=== PATIENT | male | born 1955 | race Caucasian/White ===

== ENCOUNTER 2017-04-14 09:04 | Inpatient (IN) | payer OTHER ==
[2017-04-14] VITALS (25 sets, daily range): BP systolic 16–132; BP diastolic 51–158; PULSE 56–62; RESP 10–20; Ht 177.8 cm; Wt 80.4 kg
[~2017-04-14] VITALS: Ht 177.8 cm; Wt 80.4 kg
[~2017-04-14 09:04] MED LIST: CEFAZOLIN 1 GM INJ ONE
[2017-04-14] MEDS ORDERED: ATEN-51 PO (09:41)
[2017-04-14] MEDS ORDERED: ESCI20TA38 PO (09:41)
[2017-04-14] MEDS ORDERED: MELO7.5O PO (09:41)
[2017-04-14] MEDS ORDERED: BUPR300T36 PO (09:41)
[2017-04-14] MEDS ORDERED: HYDR-902 PO (09:41)
[2017-04-14] MEDS ORDERED: AMLO-147 PO (09:41)
[2017-04-14] MEDS ORDERED: SIMV40TA2 PO (09:41)
[2017-04-14] MEDS ORDERED: FOLI-49 PO (09:41)
[2017-04-14] MEDS ORDERED: OMEP40CA6 PO (09:41)
[2017-04-14] MEDS ORDERED: LISI-522 PO (09:45)
[2017-04-14] MEDS: D5W-0.45 NACL + KCL 20 MEQ 1,000 ML IV SCH ×2 (11:55→21:55)
--- NOTE | 2017-04-14 11:55 | HPN ---
Date/Time of Note Date/Time of Note DATE: 04/14/17 TIME: 11:55 Interval H&P Admission Note Pt. seen H&P reviewed: No system changes LETHA ROSA PA-C Apr 14, 2017 11:55
[2017-04-14] MEDS ORDERED: ONDANSETRON 4 MG INJ IV PRN ×2 (12:00→15:00)
[2017-04-14] MEDS ORDERED: CEPASTAT LOZENGE MT PRN (12:00)
[2017-04-14] MEDS ORDERED: ZOLPIDEM 5 MG TAB PO PRN (12:00)
[2017-04-14] MEDS ORDERED: NALOXONE (0.4 MG/ML) INJ IV PRN (12:00)
[2017-04-14] MEDS ORDERED: CYCLOBENZAPRINE 10 MG TAB PO PRN (12:00)
[2017-04-14] MEDS ORDERED: HYDROmorphONE 1 MG/ML SYG IV PRN (12:00)
[2017-04-14] MEDS ORDERED: DIPHENHYDRAMINE 50 MG INJ IV PRN ×2 (12:00→15:00)
[2017-04-14] MEDS ORDERED: BISACODYL 10 MG SUPP PR PRN (12:00)
[2017-04-14] MEDS ORDERED: AL HYDROX/MG HYDROX/SIMETH 30 ML CUP PO PRN (12:00)
[2017-04-14] MEDS ORDERED: ACETAMINOPHEN 325 MG TAB PO PRN (12:00)
[2017-04-14] MEDS ORDERED: ROCURONIUM 50 MG INJ ONE ×3 (12:03→15:11)
[2017-04-14] MEDS ORDERED: PROPOFOL 100 ML ONE ×2 (12:03→15:11)
[2017-04-14] MEDS ORDERED: FENTAnyl 50 MCG/ML VIAL ONE (12:05)
[2017-04-14] MEDS ORDERED: SURGIFOAM POWDER 1 GM KIT ONE (13:03)
[2017-04-14] MEDS ORDERED: GELATIN SIZE 100 SPONGE ONE ×2 (13:03→14:04)
[2017-04-14] MEDS ORDERED: POLYMYXIN/BACITRACIN 1L IRRIG ONE (13:04)
[2017-04-14] MEDS ORDERED: THROMBIN 5000 UNIT VIAL ONE ×2 (13:04→14:05)
[2017-04-14] MEDS ORDERED: morphine 10 MG INJ ONE (13:07)
[2017-04-14] MEDS ORDERED: SODIUM CL BACTERIOSTATIC 30 ML INJ ONE (13:20)
[2017-04-14] MEDS ORDERED: hydrALAzine 20 MG INJ IV PRN (15:00)
[2017-04-14] MEDS ORDERED: LABETALOL HCL 20MG INJ IV PRN (15:00)
[2017-04-14] MEDS ORDERED: HYDROmorphONE (0.2 MG/ML) 10ML SYG IV PRN ×3 (15:00)
[2017-04-14] MEDS ORDERED: OXYCODONE/ACETAMINOPHEN (5/325) TAB PO PRN ×2 (15:00)
[2017-04-14] MEDS ORDERED: EPHEDrine SULFATE 50 MG/5 ML SYG IV PRN (15:00)
[2017-04-14] MEDS ORDERED: FENTAnyl 50 MCG/ML VIAL IV PRN ×3 (15:00)
[2017-04-14] MEDS ORDERED: MEPERIDINE 25 MG INJ IV PRN (15:00)
[2017-04-14] MEDS ORDERED: DEXAMETHASONE 4 MG/ML 1 ML INJ ONE (15:11)
[2017-04-14] MEDS ORDERED: LIDOCAINE 2% (SDV) 5 ML INJ ONE (15:11)
[2017-04-14] MEDS ORDERED: ONDANSETRON 4 MG INJ ONE (15:12)
--- NOTE | 2017-04-14 15:47 | OPPN ---
Date/Time of Note Date/Time of Note DATE: 04/14/17 TIME: 15:45 Operative Report Free Text/Dictation s/p ACDF C4-6 Preoperative Diagnosis C4-6 DDD and stenosis, radiculopathy Postoperative Diagnosis C4-6 DDD and stenosis, radiculopathy Operation/Procedure Performed ACDF C4-6 Provider: JEN LITTLEJOHN MD litigation assistant: LETHA ROSA PA-C Anesthesia: general Estimated blood loss: 50 - 100 ml's Specimens C4-5 and C5-6 disc Grafts/Implants neurostructures cage Complications: None LETHA ROSA PA-C Apr 14, 2017 15:47
[2017-04-14] MEDS: HYDROmorphONE 0.2 MG/ML PCA IV SCH (16:55)
--- NOTE | 2017-04-14 17:05 | RADRPT ---
PROCEDURE: Intraoperative imaging of the cervical spine with fluoroscopy. CLINICAL INDICATION: Neck pain. Intraoperative. TECHNIQUE: 11 images of the cervical spine were obtained in the operating room with an image inten sifier. No radiologist was in attendance. Fluoroscopy time is 21.5 seconds. COMPARISON: No prior study is available for comparison. FINDINGS: Surgical instruments are noted overlying the cervical spine. Final images demonstrate anterior fusion with plate and screws at C4, C5, C6. Intervertebral disk s pacers are present at C4-5 and C5-6. IMPRESSION: 1. Intraoperative imaging of the cervical spine. RPTAT: QQ .Aroldo Urias MD, MD Date Time Electronically viewed and signed by .Aroldo Urias MD, on 04/14/2017 17:04 .R/
[2017-04-14] MEDS: CEFAZOLIN 1 GM/50 ML (PMX) 50 ML IVPB SCH ×2 (18:04→20:38)
[2017-04-14] MEDS: DOCUSATE SODIUM 100 MG CAP PO SCH (20:36)
[2017-04-14] MEDS: ESCITALOPRAM 10 MG TAB PO SCH (20:36)
[2017-04-14] MEDS: ATENOLOL 25 MG TAB PO SCH (20:37)
[2017-04-14] MEDS ORDERED: ATORVASTATIN 20 MG TAB PO SCH (21:00)
[2017-04-15] VITALS: BP 137/65; PULSE 56; RESP 18
[2017-04-15 04:00] VITALS: BP 119/56; PULSE 58; RESP 18
[2017-04-15] MEDS: CEFAZOLIN 1 GM/50 ML (PMX) 50 ML IVPB SCH (04:21)
--- NOTE | 2017-04-15 04:22 | OPR ---
DATE OF OPERATION: 04/14/2017 PREOPERATIVE DIAGNOSIS: C4-5, C5-6 cervical disc disease and stenosis with radiculopathy. POSTOPERATIVE DIAGNOSIS: C4-5, C5-6 cervical disc disease and stenosis with radiculopathy. OPERATIVE PROCEDURE: 1. Anterior cervical diskectomy, spinal cord decompression at C4-5, C5-6. 2. Anterior cervical fusion at C4-5, C5-6. 3. Placement of intervertebral biomechanical device at C4-5 and C5-6. 4. Anterior hardware placement at C4, C5, C6. 5. Use of allograft. 6. Use of operative microscope. 7. Use of C-arm flash with interpretation without radiologist present. 8. Intraoperative neuromonitoring (2.5 hours). IMPLANTS: 1. Neuro structure, Cavetto, 4 mm x 16 mm x 18 mm PEEK cage at C4-5 and C5-6. 2. Neuro structure, Transom cervical plate, 32 mm, with 14 mm screws. 3. Fibergraft. SURGEON: Vipin Trevino MD HOT DIP PLATER: Steph Hutton PA-C. NEED FOR INSTRUMENT AND CONTROL SERVICE PERSON: An bilingual legal assistant was required to retract the NV elements. OPERATIVE FINDINGS AT SURGERY: Neuromonitoring inside the case revealed bilateral C5 and C6 amplitude down to 40 percent. At the end of the case, nerve signal returned to normal. The patient had stenosis at C4-5 and C5-6, with collapse at C5-6 and instability at C4-5. Bilateral foraminal herniations were seen at C5-6. ESTIMATED BLOOD LOSS: 60 cc. DRAINS: None. SPECIMENS: Disc. COMPLICATIONS: During procedure none. ANESTHESIOLOGIST: Dr. Gamez. ANESTHESIA: General. INDICATION FOR PROCEDURE: This is a 61-year-old gentleman with neck pain with left cervical radiculopathy in setting of stenosis. He failed nonoperative measures, and therefore recommended he undergo the above procedure. Preoperatively, discussed risks, benefits, alternatives. He understood and wished to proceed. DESCRIPTION OF PROCEDURE IN DETAIL: The patient was identified in the preop holding area, given Ancef antibiotics in the operating room, where he was successfully placed under general anesthesia. Neuromonitoring leads were placed. Sequential compression devices were applied. Goff catheter was introduced. Neuromonitoring was utilized during the procedure for 2.5 hours to include SSEP, MEP, and EMG. This was performed by [employer]. Start time was 1 p.m. Closure time was 3:30 p.m. The patient was placed on the operating room table in the supine position. Towel rolls were placed behind the neck and between the scapular blades. The arms were tucked to the side. Neck was extended. Neck was then prepped and draped in usual sterile fashion. A left-sided neck incision was made anteriorly. Skin was incised. The platysma was incised in line with skin incision. I then identified the interval between the sternocleidomastoid and strap muscles. I identified the anterior spine. Bent spinal needle was placed into the C5-6 level and a lateral film obtained confirmed the correct level. Once this was confirmed, I subperiosteally dissected the longus coli musculature. Self- retaining retractors were placed. Anesthesiologist deflated and re-inflated the cuff. Next, I performed radical diskectomies at C4-5 and C5-6 using curette, Kerrison punches, and pituitary rongeurs and a high-speed bur. I then decompressed the posterior canal and decompressed the spinal cord and the neural foramina bilaterally. Once the decompression was completed, I placed various trials and chose the appropriate graphite. I then took a PEEK cage, within which I placed allograft, and I impacted the intervertebral biomechanical device into the C4-5 level and the C5-6 level to complete the anterior cervical fusion at both levels. I then placed an anterior cervical plate with 14-mm screws into the C4, C5 and C6 vertebral bodies. I locked each of the screws. I then took final AP and lateral images. I was happy with placement of the hardware in line of the spine. The wound was then copiously irrigated. Of note, decompression was performed under microscopic visualization. After the wound was irrigated, retractors were removed. I then closed the platysma with a 2-0 Vicryl stitch. I then closed subcutaneous tissue with 3-0 Vicryl stitch. Dermabond was then applied. The patient was then awakened from anesthesia and taken to recovery room in stable condition. Lap, sponge, and instrument counts were correct x 2. There were no apparent complications during the procedure. The patient will be admitted to the [facility] for routine postoperative care, to include pain control, antibiotics, and physical therapy. Dictated By: Vipin Trevino MD /chacorta/joe /Document#: [id number] EDSON
[2017-04-15 05:16] LABS: BASOPHILS % 0.1 % (0.0-2.0); HEMOGLOBIN 13.6 g/dl (14.0-18.0); LYMPHOCYTES # 0.8 10^3/ul (0.8-2.9); LYMPHOCYTES % 5.3 % (15.0-51.0); MEAN CORPUSCULAR HEMOGLOBIN 31.3 pg (29.0-33.0); MEAN CORPUSCULAR VOLUME 92.2 fl (82.0-101.0); MEAN PLATELET VOLUME 11.8 fl (7.4-10.4); MONOCYTE # 0.5 10^3/ul (0.3-0.9); MONOCYTES % 3.1 % (0.0-11.0); NEUTROPHIL # 13.1 10^3/ul (1.6-7.5); PLATELET COUNT 184 10^3/UL (140-415); RED BLOOD COUNT 4.34 10^6/ul (4.70-6.10); WHITE BLOOD COUNT 14.4 10^3/ul (4.8-10.8)
[2017-04-15 05:48] LABS: CALCIUM 9.1 mg/dl (8.4-10.2); CREATININE 0.74 mg/dl (0.61-1.24); MAGNESIUM 1.9 mg/dl (1.7-2.5)
[2017-04-15] MEDS: HYDROmorphONE 0.2 MG/ML PCA IV SCH (07:04)
[2017-04-15] MEDS: D5W-0.45 NACL + KCL 20 MEQ 1,000 ML IV SCH (07:18)
[2017-04-15 07:42] VITALS: BP 133/63; RESP 19
--- NOTE | 2017-04-15 08:13 | PN ---
Date/Time of Note Date/Time of Note DATE: 04/15/17 TIME: 08:10 Assessment/Plan VTE Prophylaxis VTE Prophylaxis Intervention: SCD's, other Lines/Catheters IV Catheter Type (from Nrsg): Peripheral IV Urinary Cath still in place: Yes Reason Cath still needed: urinary retention Assessment/Plan Assessment/Plan 1. Stable post op cx laminectomy. 2. Hx HBP, controlled 3. Hx elev chol, statin continued 4. Elev WBC, not sure if received steroids perioperatively ? 5. Home only if ok with ortho and pt 6/. Boyle to be removed. Subjective 24 Hr Interval Summary Respiratory: No cough, No shortness of breath Cardiovascular: No chest pain Gastrointestinal: no complaints Genitourinary: other (boyle in place) Musculoskeletal: neck pain (mild without diff swallowing and no radicular neck pain) Exam/Review of Systems Vital Signs Vitals Vital Signs Date Time Temp Pulse Resp B/P Pulse Ox O2 Delivery O2 Flow Rate FiO2 04/15/17 07:42 97.7 56 19 133/63 96 04/15/17 04:00 Nasal Cannula 2.0 Intake and Output 04/14/17 04/14/17 04/15/17 15:00 23:00 07:00 Intake Total 1900 ml 850 ml Output Total 300 ml 1000 ml Balance 1600 ml -150 ml Exam Neck: No jvd Respiratory: clear to auscultation Cardiovascular: regular rate and rhythm Gastrointestinal: soft Extremities: No edema (and no calf tend) Results Result Diagram: 04/15/17 0437 04/15/17 0437 Results 24 hrs Laboratory Tests Test 04/15/17 04:37 White Blood Count 14.4 H Red Blood Count 4.34 L Hemoglobin 13.6 L Hematocrit 40.0 L Mean Corpuscular Volume 92.2 Mean Corpuscular Hemoglobin 31.3 Mean Corpuscular Hemoglobin Concent 34.0 Red Cell Distribution Width 13.0 Platelet Count 184 Mean Platelet Volume 11.8 H Neutrophils % 91.0 H Lymphocytes % 5.3 L Monocytes % 3.1 Eosinophils % 0.0 Basophils % 0.1 Nucleated Red Blood Cells % 0.0 Neutrophils # 13.1 H Lymphocytes # 0.8 Monocytes # 0.5 Eosinophils # 0.0 Basophils # 0.0 Nucleated Red Blood Cells # 0.0 Sodium Level 143 Potassium Level 4.0 Chloride Level 99 Carbon Dioxide Level 30 Anion Gap 18 H Blood Urea Nitrogen 11 Creatinine 0.74 Glucose Level 147 Calcium Level 9.1 Magnesium Level 1.9 Medications Medications Current Medications Potassium Chloride/Dextrose/ Sod Cl (D5-1/2ns + KCl 20 Meq) 1,000 ml @ 100 mls/ hr Q10H IV ; Start 04/14/17 at 11:55 Acetaminophen/ Hydrocodone Bitart ([place] (10/325)) 1 tab Q4H PRN PO PAIN LEVEL 1-5; Start 04/15/17 at 10:00 Acetaminophen/ Hydrocodone Bitart ([place] (10/325)) 2 tab Q4H PRN PO PAIN LEVEL 6-10; Start 04/15/17 at 10:00 Hydromorphone HCl (Dilaudid) 0.2 mg Q1H PRN IV BREAKTHROUGH PAIN; Start at 12:00 Ondansetron HCl (Zofran Inj) 4 mg Q6H PRN IV NAUSEA AND/OR VOMITING; Start at 12:00 Bisacodyl (Dulcolax Supp) 10 mg DAILY PRN RI CONSTIPATION; Start 04/14/17 at 12 :00 Docusate Sodium (Colace) 100 mg BID PO Last administered on 04/14/17t 20:36; Admin Dose 100 MG; Start 04/14/17 at 21:00 Al Hydrox/Mg Hydrox/Simethicone (Mag-Al Plus) 15 ml Q6H PRN PO CONSTIPATION/ DYSPEPSIA; Start 04/14/17 at 12:00 Acetaminophen (Tylenol Tab) 650 mg Q4H PRN PO ACUNA OR TEMP GREATER THAN 101.3F; Start 04/14/17 at 12:00 Cyclobenzaprine HCl (Flexeril) 10 mg TID PRN PO MUSCLE SPASMS; Start 04/14/17 at 12:00 Phenol (Cepastat Lozenge) 1 lozenge PRN PRN MT SORE THROAT; Start 04/14/17 at 12:00 Diphenhydramine HCl (Benadryl) 25 mg Q6H PRN IV ITCHING; Start 04/14/17 at 12: 00 Naloxone HCl (Narcan) 0.2 mg Q2M PRN IV RR 8 BREATHS/MIN OR LESS; Start at 12:00 Hydromorphone HCl (Dilaudid SAND CASTER APPRENTICE) SAND CASTER APPRENTICE to be started in PACU Q4PCA IV Last administered on 04/15/17 07:04; Admin Dose 6 MG; Start 04/14/17 at 12:00; Stop 04/15/17 at 10:00 Miscellaneous Information 1. Hold SAND CASTER APPRENTICE at 1,000... SAND CASTER APPRENTICE IV ; Start 04/14/17 at 12: 00 Amlodipine Besylate (Norvasc) 10 mg DAILY PO ; Start 04/15/17 at 09:00 Atenolol (Tenormin) 25 mg BID PO Last administered on 04/14/17 20:37; Admin Dose 25 MG; Start 04/14/17 at 21:00 Bupropion HCl (Wellbutrin Xl) 300 mg DAILY PO ; Start 04/15/17 at 09:00 Escitalopram Oxalate (Lexapro) 20 mg DAILY PO Last administered on 04/14/17 20 :36; Admin Dose 20 MG; Start 04/14/17 at 19:30 Folic Acid (Folic Acid) 1 mg DAILY PO ; Start 04/15/17 at 09:00 Lisinopril (Zestril) 20 mg DAILY PO ; Start 04/15/17 at 09:00 Atorvastatin Calcium (Lipitor) 20 mg QHS PO Last administered on 04/14/17 20: 36; Admin Dose 20 MG; Start 04/14/17 at 21:00 Hydrochlorothiazide (Hydrochlorothiazide) 25 mg DAILY PO ; Start 04/15/17 at 09: 00 SILVESTRE PANDA MD Apr 15, 2017 08:13
--- NOTE | 2017-04-15 08:19 | CONS ---
DATE OF ADMISSION: 04/14/2017 DATE OF CONSULTATION: 04/14/2017 Thank you, Dr Trevino, for asking me to participate in the medical management of this patient. REASON FOR CONSULTATION: Manage the patient's hypertension, gastroesophageal reflux disease, hyperlipidemia, and generalized anxiety disorder. HISTORY OF PRESENT ILLNESS: This 61-year-old man was having increasing neck pain that was radiating down his spine into his trapezius muscle. The patient had failed medical therapy and decided to undergo a cervical spine surgery. Surgery was done today by Dr Trevino. The patient is now postop surgery. The patient is awake and alert. He answers questions appropriately. The patient denies any chest pain or shortness of breath. The patient did take his antihypertensive medication this morning. PAST MEDICAL HISTORY: Remarkable for hypertension, hyperlipidemia, gastroesophageal reflux disease, generalized anxiety disorder. PAST SURGICAL HISTORY: Knee arthroscopy, shoulder arthroscopy on the right, thyroglossal cyst removal on the right, tonsillectomy, total knee arthroplasty on the right. ALLERGIES: OYSTERS. SOCIAL HISTORY: He does not smoke. CURRENT MEDICATIONS: 1. Amlodipine 10 mg a day. 2. Atenolol 25 mg twice a day. 3. Bupropion XL 300 mg a day. 4. Lexapro 20 mg a day. 5. Folic acid 1 mg a day. 6. [place] 10/325 q.4 hours p.r.n. pain. 7. Lisinopril/hydrochlorothiazide 20/25 daily. PHYSICAL EXAMINATION: A well-develop man in no acute distress. VITAL SIGNS: Temperature 98.1, pulse of 58, respirations 20, blood pressure 125/55. O2 saturation is 98 percent on 2 L nasal cannula. HEENT: Head normocephalic. Eyes, extraocular muscles intact. Nose and mouth are normal. NECK: He has a rigid cervical collar on. LUNGS: Clear to auscultation. HEART: Regular rhythm. No murmurs, gallops, or rubs. ABDOMEN: Soft, nontender. EXTREMITIES: No peripheral edema. NEUROLOGIC: Grossly intact. IMPRESSION: This patient is now postop a cervical spine surgery which included a cervical discectomy and cervical fusion. He is feeling well. He denies any nausea, shortness of breath, chest pain. I will manage the patient's hypertension, hyperlipidemia, gastroesophageal reflux disease, and generalized anxiety disorder. PLAN: 1. Resume some routine medications. 2. Check labs in the morning. 3. Postop cervical spine surgery protocol. 4. I will follow the patient along with you. Dictated By: Venkatesh Mercado MD /chacorta/kenji /Document#: [id number]
[2017-04-15] MEDS: ATENOLOL 25 MG TAB PO SCH (08:29)
[2017-04-15] MEDS: DOCUSATE SODIUM 100 MG CAP PO SCH (08:29)
[2017-04-15] MEDS: ESCITALOPRAM 10 MG TAB PO SCH (08:30)
[2017-04-15] MEDS ORDERED: HYDROCHLOROTHIAZIDE 25 MG TAB PO SCH (09:00)
[2017-04-15] MEDS ORDERED: LISINOPRIL 20 MG TAB PO SCH (09:00)
[2017-04-15] MEDS ORDERED: AMLODIPINE 10 MG TAB PO SCH (09:00)
[2017-04-15] MEDS ORDERED: FOLIC ACID 1 MG TAB PO SCH (09:00)
[2017-04-15] MEDS ORDERED: BUPROPION (XL) 150 MG TAB PO SCH (09:00)
--- NOTE | 2017-04-15 09:29 | DS ---
Date/Time of Note Date/Time of Note DATE: 04/15/17 TIME: 09:28 Discharge Summary Admission/Discharge Info Admit Date/Time Apr 14, 2017 at 09:04 Discharge Date/Time 04/15 Discharge Diagnosis cervical fusion Patient Condition: Good Hospital Course patient underwent C4-6 ACDF. post-op course uncomplicated. By POD #1 he was deemed stable for d/c with f/u arranged with the undersigned. Home Meds Reported Medications Lisinopril/Hydrochlorothiazide (Zestoretic 20-25 mg Tablet) 1 Each Tablet, 1 TAB PO DAILY, TAB 04/14/17 Hydrocodone/Acetaminophen ([place] 10-325 Tablet) 1 Each Tablet, 1 TAB PO Q4H PRN , TAB 04/14/17 Simvastatin* (Zocor*) 40 Mg Tablet, 40 MG PO QHS, #30 TAB 04/14/17 Escitalopram Oxalate* (Escitalopram Oxalate*) 20 Mg Tablet, 20 MG PO DAILY, #30 TAB 04/14/17 Bupropion Hcl* (Bupropion XL*) 300 Mg Tab.sr.24h, 300 MG PO DAILY, TAB.SA 04/14/17 Meloxicam* (Meloxicam*) 7.5 Mg/5 Ml Oral.susp, 15 MG PO DAILY, #300 ML 04/14/17 Omeprazole* (Omeprazole*) 40 Mg Capsule.dr, 40 MG PO DAILY, #30 CAP 04/14/17 Amlodipine Besylate* (Amlodipine Besylate*) 10 Mg Tablet, 10 MG PO DAILY, #30 TAB 04/14/17 Folic Acid* (Folic Acid*) 1 Mg Tablet, 1 MG PO DAILY, TAB 04/14/17 Atenolol* (Atenolol*) 25 Mg Tablet, 25 MG PO BID, #60 TAB 04/14/17 Primary Care Provider Not On Staff Doctor Pending Labs Laboratory Tests Test 04/15/17 04:37 White Blood Count 14.410^3/ul (4.8-10.8) Red Blood Count 4.3410^6/ul (4.70-6.10) Hemoglobin 13.6g/dl (14.0-18.0) Hematocrit 40.0% (42.0-52.0) Mean Corpuscular Volume 92.2fl (82.0-101.0) Mean Corpuscular Hemoglobin 31.3pg (29.0-33.0) Mean Corpuscular Hemoglobin Concent 34.0g/dl (32.0-37.0) Red Cell Distribution Width 13.0% (11.5-14.5) Platelet Count 85027^3/UL (140-415) Mean Platelet Volume 11.8fl (7.4-10.4) Neutrophils % 91.0% (39.0-77.0) Lymphocytes % 5.3% (15.0-51.0) Monocytes % 3.1% (0.0-11.0) Eosinophils % 0.0% (0.0-7.0) Basophils % 0.1% (0.0-2.0) Nucleated Red Blood Cells % 0.0/100WBC (0.0-0.0) Neutrophils # 13.110^3/ul (1.6-7.5) Lymphocytes # 0.810^3/ul (0.8-2.9) Monocytes # 0.510^3/ul (0.3-0.9) Eosinophils # 0.010^3/ul (0.0-0.5) Basophils # 0.010^3/ul (0.0-0.1) Nucleated Red Blood Cells # 0.010^3/ul (0.0-0.0) Sodium Level 143mmol/L (135-144) Potassium Level 4.0mmol/L (3.5-5.1) Chloride Level 99mmol/L (97-110) Carbon Dioxide Level 30mmol/L (21-31) Anion Gap 18 (8-16) Blood Urea Nitrogen 11mg/dl (7-20) Creatinine 0.74mg/dl (0.61-1.24) Glucose Level 147mg/dl (70-220) Calcium Level 9.1mg/dl (8.4-10.2) Magnesium Level 1.9mg/dl (1.7-2.5) JEN LITTLEJOHN MD Apr 15, 2017 09:29
[2017-04-15] MEDS ORDERED: HYDROCODONE/APAP (10/325) TAB PO PRN ×2 (10:00)
[2017-04-15 17:34] LABS: ADD UMIC NO; UR ASCORBIC ACID NEGATIVE (NEGATIVE); UR BILIRUBIN (Dip) NEGATIVE (NEGATIVE); UR BLOOD (Dip) NEGATIVE (NEGATIVE); UR CLARITY CLEAR (CLEAR); UR COLOR YELLOW (YELLOW); UR GLUCOSE (Dip) NEGATIVE (NEGATIVE); UR KETONES (Dip) NEGATIVE (NEGATIVE); UR LEUKOCYTE ESTERASE (Dip) NEGATIVE Leu/ul (NEGATIVE); UR NITRITE (Dip) NEGATIVE (NEGATIVE); UR SPECIFIC GRAVITY (Dip) 1.017 (1.003-1.030); UR TOTAL PROTEIN (Dip) NEGATIVE (NEGATIVE); UR UROBILINOGEN (Dip) NEGATIVE (NEGATIVE)
== END 2017-04-15 11:57 | disposition home or self-care (01) | DRG 473 ==
LOC: REC 09:04 → MS1 17:20
PROVIDERS: ADMIT Specialist; ATTEND Specialist
PROC: 00NW0ZZ Release Cervical Spinal Cord, Open Approach (ICD-10-PCS; 2017-04-14)
PROC: 0RT30ZZ Resection of Cervical Vertebral Disc, Open Approach (ICD-10-PCS; 2017-04-14)
PROC: 4A11X4G Monitoring of Peripheral Nervous Electrical Activity, Intraoperative, External Approach (ICD-10-PCS; 2017-04-14)
PROC: 0RG20A0 Fusion of 2 or more Cervical Vertebral Joints with Interbody Fusion Device, Anterior Approach, Anterior Column, Open Approach (ICD-10-PCS; principal; 2017-04-14 12:00)
DX: M50.121 Cervical disc disorder at C4-C5 level with radiculopathy (principal); I10 Essential (primary) hypertension; K21.9 Gastro-esophageal reflux disease without esophagitis; E78.5 Hyperlipidemia, unspecified; F41.1 Generalized anxiety disorder
CPT/HCPCS: 72050; 80048; 81003; 83735; 85025; 87086; 97116; 97162; 97530; C1713; J0690; J1100; J1170; J2270; J2405; J3010